=== PATIENT | male | born 1995 | race Caucasian/White ===

== ENCOUNTER 2018-01-16 21:22 | Emergency (ER) | payer OTHER, SELFPAY ==
[2018-01-16 21:28] VITALS: BP 164/93; PULSE 95; RESP 16; TEMP 36.9; O2SAT 98; BMI 29.5
--- NOTE | 2018-01-16 21:52 | ED_ITS ---
HPI - Back Pain/Injury General Chief Complaint: Back Pain/Injury Stated Complaint: TROUBLE MOVING HEAD AND NECK Time Seen by Provider: 01/16/18 21:52 Source: patient Mode of arrival: ambulatory Limitations: no limitations History of Present Illness HPI Narrative: The patient developed right-sided neck pain this morning about 10 :00 a.m. he has had no trauma he woke up with the pain. His pain is causes him to tilt his head to the left. He denies headache, visual changes, or neurologic deficits. He has no numbness or weakness in the upper lower extremities. He has no prior history of neck injury. He has no recent illness with cough, fever or chills. Related Data Previous Rx's Medication Instructions Recorded methocarbamol [Robaxin-] 750 mg PO Q6H PRN #20 tab 01/16/18 Allergies Allergy/AdvReac Type Severity Reaction Status Date / Time No Known Drug Allergies Allergy Verified 01/16/18 21:33 Review of Systems Constitutional Denies frequent falls and Denies weakness Eyes Denies change in vision ENT Ears, Nose, Mouth, and Throat: Denies change in voice, Denies dizziness, Reports neck pain and Denies sore throat Musculoskeletal Reports neck pain and Denies numbness Neurologic Denies dizziness, Denies frequent falls, Denies numbness and Denies weakness PFSH Social History Smoking Status: Never smoker Exam Initial Vital Signs Initial Vital Signs: Vital Signs Temperature 98.4 F 01/16/18 21:28 Pulse Rate 95 H 01/16/18 21:28 Respiratory Rate 16 01/16/18 21:28 Blood Pressure 164/93 H 01/16/18 21:28 Pulse Oximetry 98 01/16/18 21:28 Const General: cooperative, healthy appearing, well developed and other (He appears uncomfortable) Nutritional Appearance: well nourished Orientation: alert, awake, oriented x3 and not confused [facility] Head: normocephalic and atraumatic Mouth: oral mucosae normal and moist mucous membranes Throat: tonsils normal and uvula midline Eyes General: appearance normal, both eyes and all related structures Eyelids: eyelids normal Conjunctivae: conjunctivae normal Sclera: sclerae normal Pupils: PERRL EOM: EOM intact bilaterally Skin General: no rashes or lesions noted Neuro General: alert, oriented x3, gait normal and no focal motor deficits Speech: speech normal Course Orders Ordered: Discontinued Medications Hydrocodone Bitart/Acetaminophen (Vicodin Prepack) 1 bottle MISC SEEINSTR ONE Stop: 01/16/18 22:56 Last Admin: 01/16/18 23:03 Dose: 1 bottle Diazepam (Valium) 5 mg PO NOW ONE Stop: 01/16/18 21:56 Last Admin: 01/16/18 22:04 Dose: 5 mg Ketorolac Tromethamine (Toradol) 60 mg IM NOW ONE Stop: 01/16/18 21:56 Last Admin: 01/16/18 22:04 Dose: 60 mg Vital Signs - 8 hr 01/16/18 21:28 01/16/18 23:03 Temperature 98.4 F Pulse Rate 95 H 85 Respiratory Rate 16 17 Blood Pressure 164/93 H Blood Pressure [Left Arm] 141/87 H Pulse Oximetry 98 98 Discharge Plan Departure Patient Disposition: Home, Self-Care Clinical Impression: Acute cervical myofascial strain Discharge Date/Time: 01/16/18 23:08 Interventions: ED Discharge Assessment Last Done: 01/16/18 23:08 Instructions: DI for Neck Pain Activity Restrictions/Additional Instructions: Advil 3 tablets every 6 hr as needed for pain. Robaxin every 6 hr for spasm. [place] every 4-6 hours for added pain control. Return here if worse. Prescriptions: New methocarbamol [Robaxin-750] 750 mg tablet 750 mg PO Q6H PRN (Reason: muscle spasm) Qty: 20 RF: 0
[2018-01-16] MEDS: diazePAM 5 MG TABLET PO (22:04)
[2018-01-16] MEDS: KETOROLAC 60 MG/2 ML VIAL IM (22:04)
[2018-01-16 23:03] VITALS: BP 141/87; PULSE 85; RESP 17; O2SAT 98
[2018-01-16] MEDS: HYDROCODONE/ACET 5/325 PREPACK 1 BOTTLE MISC (23:03)
== END 2018-01-16 23:08 | disposition home or self-care (01) ==
PROVIDERS: Emergency Provider Emergency Medicine
DX: S16.1XXA Strain of muscle, fascia and tendon at neck level, initial encounter (principal)
CPT/HCPCS: 96372; 99282; 99283; J1885